=== PATIENT | female | born 2000 | race African-American/Black ===

== ENCOUNTER 2018-01-14 13:10 | Emergency (ER) | payer MEDICAID ==
[2018-01-14 13:15] VITALS: BP 139/71
[2018-01-14] MEDS ORDERED: CLINDAMYCIN HCL 150 MG CAPSULE PO ONE (13:47)
--- NOTE | 2018-01-14 14:03 | ER Document Report ---
HPI - HPI Pain Level: 3 Notes: Patient is a 17-year-old female who presents with chief complaint of left lower dental pain. Patient reports she had dental extractions done 4 days ago. Patient reports she is taking Percocet, ibuprofen and penicillin however she states the pain is not improving. Patient denies any fevers. - REPRODUCTIVE Reproductive: DENIES: : Past Medical History - General Information source: Patient - Social History Smoking Status: Never Smoker Frequency of alcohol use: None Drug Abuse: None Family History: Reviewed & Not Pertinent - Medical History Medical History: Negative Pulmonary Medical History: Denies: Hx Asthma Neurological Medical History: Reports: Hx Migraine Past Surgical History: Reports: Hx Oral Surgery - Immunizations Immunizations up to date: Yes Hx Diphtheria, Pertussis, Tetanus Vaccination: Yes Vertical Provider Document - CONSTITUTIONAL Notes: PHYSICAL EXAMINATION: GENERAL: Well-appearing, well-nourished and in no acute distress. HEAD: Atraumatic, normocephalic. EYES: Pupils equal round extraocular movements intact, conjunctiva are normal. ENT: Nares patent, swelling and erythema noted to left lower jawline near teeth #19 and 18. No drainable abscess identified. NECK: Normal range of motion LUNGS: No respiratory distress Musculoskeletal: Normal range of motion NEUROLOGICAL: Normal speech, normal gait. PSYCH: Normal mood, normal affect. SKIN: Warm, Dry, normal turgor, no rashes or lesions noted. - INFECTION CONTROL TRAVEL OUTSIDE OF THE [place] IN LAST 30 DAYS: No Course - Re-evaluation Re-evalutation: Patient currently taking penicillin for possible dental infection, will change to clindamycin as clearly her infection is not getting any better. Patient denies any fevers. Patient will follow up with her oral surgeon on Tuesday. Patient instructed to continue taking ibuprofen, apply ice packs and take her Percocet as prescribed by her oral surgeon. - Vital Signs Vital signs: Temp Pulse Resp BP Pulse Ox 98.1 F 66 20 139/71 H 98 01/14/18 13:14 01/14/18 13:14 01/14/18 13:14 01/14/18 13:14 01/14/18 13:14 Discharge - Discharge Clinical Impression: Pain, dental Condition: Stable Disposition: HOME, SELF-CARE Additional Instructions: Please continue taking the pain medication that your oral surgeon started you on. Stop taking the penicillin and start taking the clindamycin. Call them on Tuesday let them know you were seen here and that we changed your antibiotic. Prescriptions: Clindamycin HCl 300 mg PO TID #30 capsule
== END 2018-01-14 14:09 | disposition home or self-care (01) ==
LOC: ER 13:10
DX: K08.89 Other specified disorders of teeth and supporting structures (principal); Z98.890 Other specified postprocedural states
CPT/HCPCS: 99282; J3490